=== PATIENT | male | born 1995 | race Caucasian/White ===

== ENCOUNTER → 2025-02-02 15:06 | Outpatient (BNVA) | payer OTHER, SELFPAY | PROVIDERS: Visit Provider Podiatrist Foot & Ankle Surgery | DX: M79.671 Pain in right foot (principal); M79.672 Pain in left foot; M25.371 Other instability, right ankle; M25.372 Other instability, left ankle; M25.571 Pain in right ankle and joints of right foot; M25.572 Pain in left ankle and joints of left foot; G89.29 Other chronic pain | CPT/HCPCS: 73610; 73630; 99203 ==

== ENCOUNTER 2025-03-06 10:12 | Emergency (ER) | payer OTHER, SELFPAY ==
[2025-03-06 10:16] VITALS: BP 142/80; PULSE 83; TEMP 36.9; O2SAT 98; BMI 28.5
--- NOTE | 2025-03-06 10:23 | CT_ITS ---
WS: [id number] CT FACIAL BONES TECHNIQUE: Noncontrast facial bones with coronal and sagittal reformatted images. CLINICAL INFORMATION: Trauma COMPARISON: None. DLP: 2017.[address] scans at [facility] use at least one of these dose optimization techniques: automated exposure control; mA and/or kV adjustment per patient size (includes targeted exams where dose is matched to clinical indication); or iterative reconstruction. FINDINGS: Comminuted nasal bone fractures involving the distal nasal tip extending into the nasal bones bilaterally. Slight depression of the LEFT nasal bone fracture. Soft tissue edema. Paranasal sinuses are well aerated. Mastoid air cells are well aerated. Pterygoid plates are intact. No evidence of mandibular fracture or dislocation. Zygoma are intact. No evidence of mandibular fracture or dislocation. CT/CT facial bones wo con* [id number] IMPRESSION: Comminuted nasal bone fractures involving the distal nasal tip extending into the nasal bones bilaterally. Slight depression of the LEFT nasal bone fracture .
--- NOTE | 2025-03-06 10:23 | CT_ITS ---
WS: [id number] CT CERVICAL TRAUMA TECHNIQUE: Noncontrast CT of the cervical spine with coronal and sagittal reformatted images. CLINICAL INFORMATION: Trauma COMPARISON: None. DLP: 2017.[address] scans at [facility] use at least one of these dose optimization techniques: automated exposure control; mA and/or kV adjustment per patient size (includes targeted exams where dose is matched to clinical indication); or iterative reconstruction. FINDINGS: Straightening of the normal cervical lordosis. Mild cervical curve. Normal craniocervical junction. Normal C1-C2 articulation. Dens is normal in appearance. Normal occipital condyles. No high-grade spinal canal narrowing. Normal C1 ring. No evidence of acute fracture or dislocation. Normal prevertebral soft tissues. Mastoids air cells are well aerated. CT/CT cervical spin wo con* [id number] IMPRESSION: No evidence of acute fracture or dislocation.
--- NOTE | 2025-03-06 10:23 | CT_ITS ---
WS: [id number] CT HEAD TECHNIQUE: Noncontrast CT of the head obtained from the skullbase to the vertex. CLINICAL INFORMATION: Trauma COMPARISON: None. DLP: 2017.[address] scans at [facility] use at least one of these dose optimization techniques: automated exposure control; mA and/or kV adjustment per patient size (includes targeted exams where dose is matched to clinical indication); or iterative reconstruction. FINDINGS: No evidence of intracranial hemorrhage or mass effect. Ventricular system and basal cisterns are patent. No extra-axial fluid collections. No evidence of mass or mass effect. Normal washburn-white differentiation. Paranasal sinuses and mastoid air cells are well aerated. .Normal visualized soft tissues. LEFT nasal bone fracture will be discussed on the face CT CT/CT head wo con* [id number] IMPRESSION: 1. No evidence of intracranial hemorrhage or mass effect. 2. No acute intracranial findings.
--- NOTE | 2025-03-06 10:23 | XR_ITS ---
WS: [id number] Left ankle, 3 views, 03/06/2025 Clinical Data: Trauma Comparison: Left ankle, 02/02/2025 Findings: No fractures or dislocations are seen. The ankle mortise is normal. The talus and calcaneus are unremarkable. No soft tissue swelling over the medial or lateral malleolus is seen. XR/XR ankle LT min 3V* [id number] Impression: Negative left ankle.
--- NOTE | 2025-03-06 11:24 | W.ED.TRAUMA ---
HPI - Trauma General: Chief Complaint: Trauma Stated Complaint: bucked off a horse, nose and L ankle pain Time Seen by Provider: 03/06/25 10:25 History of Present Illness: 30-year-old male presents emergency room with complaints of having been thrown from a horse. Last night he was riding a horse he was thrown off hit his head he is complaining of neck pain headache and left ankle pain this morning. No abdominal pain. He reports he did have a loss of consciousness thinks he was out for about 2 to 3 minutes. Previous history of traumatic brain injury associated with service. Associated symptoms: Denies abdominal pain, back pain, chest pain, chills or fever(s) Related Data Previous Rx's ?Medication ?Instructions ?Recorded Custom inserts [id number] #1 ea 02/07/25 diclofenac sodium 75 mg 75 mg PO Q12H PRN pain #20 tabs 03/06/25 tablet,delayed release Allergies Allergy/AdvReac Type Severity Reaction Status Date / Time No Known Allergies Allergy Verified 03/06/25 10:22 Review of Systems Const: Denies: fever(s) or chills Card: Denies: chest pain Resp: Denies: dyspnea GI: Denies: abdominal pain : Denies: dysuria, urinary frequency or urinary urgency Musc: Reports: joint pain; Denies: neck pain or back pain Skin/Breast: Denies: rash PFS ED PFSH: Medical History (Updated 03/06/25 @ 12:30 by Sancho Sorensen DO) History of traumatic brain injury Social History Smoking and tobacco/nicotine status: former use of tobacco/nicotine Physical Exam Const: COMMON NORMALS: no acute distress GENERAL APPEARANCE: cooperative and comfortable ORIENTATION/CONSCIOUSNESS: Yes awake, Yes oriented to person, Yes oriented to place and Yes oriented to time HENMT: COMMON NORMALS: normocephalic, atraumatic and hearing grossly normal bilaterally HEAD & SCALP: normocephalic and atraumatic Resp: COMMON NORMALS: normal respiratory effort, No retractions, No use of accessory muscles and clear to auscultation bilaterally AUSCULTATION: clear to auscultation bilaterally Cardio: COMMON NORMALS: regular rate, regular rhythm and No murmurs present (Cardio) RATE: regular rate RHYTHM: regular rhythm GI: COMMON NORMALS: Soft to palpation and No hepatosplenomegaly present AUSCULTATION: Yes normoactive bowel sounds PALPATION: Yes Soft to palpation, No Tenderness to palpation present (GI), No Guarding due to palpation present (GI) and Yes No hepatosplenomegaly present Extremity: COMMON NORMALS: normal to inspection, capillary refill normal, no clubbing, cyanosis or edema, no calf tenderness and no pedal edema Neuro: SENSORIUM/ORIENTATION: Yes oriented to person, Yes oriented to place and Yes oriented to time Skin: COMMON NORMALS: no rashes or lesions noted GENERAL SKIN EXAM: no rashes or lesions noted Course Vital Signs: Vital signs: Vital Signs Temperature 98.4 F 03/06/25 10:16 Pulse Rate 69 03/06/25 11:30 Blood Pressure 137/84 03/06/25 11:30 Pulse Oximetry 96 03/06/25 11:30 Oxygen Delivery Me thod Room Air 03/06/25 11:30 MDM - Trauma Medical Decision Making CT of the head and neck are unremarkable CT facial bones shows comminuted nasal bone fracture he does not have any occlusion of the nares at this point. He is unable to bear weight on the left ankle plain films unremarkable for fracture. Will set him up for outpatient follow-up with ENT regarding the nasal bone fracture. Placed in a posterior splint and given crutches elevate and ice is much as he is able diclofenac as needed and follow-up with podiatry. it operations manager will make arrangements for the follow-ups. Reviewed findings with the patient. Medical Records I reviewed the patient's medical records. Lab Data I reviewed the patient's lab results. 03/06/25 11:50 03/06/25 11:50 Radiology Impressions Ankle X-Ray 03/06/25 10:23 Impression: Negative left ankle. Cervical Spine CT 03/06/25 10:23 IMPRESSION: No evidence of acute fracture or dislocation. Face CT 03/06/25 10:23 IMPRESSION: Comminuted nasal bone fractures involving the distal nasal tip extending into the nasal bones bilaterally. Slight depression of the LEFT nasal bone fracture. Head CT 03/06/25 10:23 IMPRESSION: 1. No evidence of intracranial hemorrhage or mass effect. 2. No acute intracranial findings. Laboratory Results WBC 7.02 10^3/uL (3.29-11.43) 03/06/25 11:50 RBC 5.00 10^6/uL (3.85-5.65) 03/06/25 11:50 Hgb 14.50 g/dL (11.27-16.99) 03/06/25 11:50 Hct 41.4 % (37-53) 03/06/25 11:50 MCV 82.8 fl (82-101) 03/06/25 11:50 MCH 29.0 pg (27-33) 03/06/25 11:50 MCHC 35.0 g/dL (30-55) 03/06/25 11:50 RDW 12.0 % (12.1-15.1) L 03/06/25 11:50 Plt Count 239 10^3/cmm (157-399) 03/06/25 11:50 MPV 11.4 fL (7.4-10.4) H 03/06/25 11:50 Neut % (Auto) 59.8 % 03/06/25 11:50 Lymph % (Auto) 31.2 % 03/06/25 11:50 [place] % (Auto) 6.0 % 03/06/25 11:50 Eos % (Auto) 2.4 % 03/06/25 11:50 Baso % (Auto) 0.3 % 03/06/25 11:50 Neut # (Auto) 4.20 10^3/uL (1.8-7.7) 03/06/25 11:50 Lymph # (Auto) 2.2 10^3/uL (0.8-4.8) 03/06/25 11:50 [place] # (Auto) 0.4 10^3/uL (0.2-0.9) 03/06/25 11:50 Eos # (Auto) 0.2 10^3/uL (0.0-0.8) 03/06/25 11:50 Baso # (Auto) 0.0 10^3/uL (0.0-0.1) 03/06/25 11:50 Nucleated RBC % (auto) 0 % 03/06/25 11:50 Nucleated RBCs # 0.0 /100WBC 03/06/25 11:50 Sodium 136 mmol/L (136-145) 03/06/25 11:50 Potassium 3.8 mmol/L (3.5-5.1) 03/06/25 11:50 Chloride 100 mmol/L (98-107) 03/06/25 11:50 Carbon Dioxide 23 mmol/L (22-29) 03/06/25 11:50 Anion Gap 16.8 (5-19) 03/06/25 11:50 BUN 7 mg/dL (6-20) 03/06/25 11:50 Creatinine 0.7 mg/dL (0.7-1.2) 03/06/25 11:50 GFR Calculation 130.7 mL/min (90-130) H 03/06/25 11:50 Glucose 80 mg/dL (65-115) 03/06/25 11:50 Calculated Osmolality 279 mOsm/kg (285-295) L 03/06/25 11:50 Calcium 8.9 mg/dL (8.5-10.5) 03/06/25 11:50 Total Bilirubin 0.5 mg/dL (0.15-1.2) 03/06/25 11:50 AST 32 U/L (0-40) 03/06/25 11:50 ALT 37 U/L (0-41) 03/06/25 11:50 Alkaline Phosphatase 79 U/L (40-130) 03/06/25 11:50 Total Protein 7.0 g/dL (6.6-8.7) 03/06/25 11:50 Albumin 4.4 g/dL (3.5-5.2) 03/06/25 11:50 Globulin 2.6 g/dL (1.3-4.6) 03/06/25 11:50 Urine Color Yellow (Yellow) 03/06/25 12:15 Urine Appearance Clear (CLEAR) 03/06/25 12:15 Urine pH 6.5 (5-7) 03/06/25 12:15 Ur Specific Brogue 1.019 (1.005-1.030) 03/06/25 12:15 Urine Protein Negative (Negative) 03/06/25 12:15 Urine Glucose (UA) Negative (Normal) 03/06/25 12:15 Urine Ketones 2+ (Negative) H 03/06/25 12:15 Urine Blood Negative (Negative) 03/06/25 12:15 Urine Nitrate Negative (Negative) 03/06/25 12:15 Urine Bilirubin Negative (Negative) 03/06/25 12:15 Urine Urobilinogen 1.0 mg/dL (Negative) 03/06/25 12:15 Ur Leukocyte Esterase Negative (Negative) 03/06/25 12:15 Urine RBC 0-2 /hpf (0-2) 03/06/25 12:15 Urine WBC 0-5 /hpf (0-5) 03/06/25 12:15 Ur Squamous Epith Cells 0-5 /hpf (0-5) 03/06/25 12:15 Amorphous Sediment Not Reportable 03/06/25 12:15 Urine Bacteria None seen /hpf (NONE) 03/06/25 12:15 Hyaline Casts 0.81 /lpf 03/06/25 12:15 All radiology interpretation(s) finalized by discharge Discharge Plan Discharge Patient Disposition: Home Clinical Impression: Fall from horse, Left ankle instability, History of traumatic brain injury, Closed fracture nasal bone, Left ankle sprain Condition: Stable Prescriptions: New diclofenac sodium 75 mg tablet,delayed release (DR/EC) 75 mg PO Q12H PRN (Reason: pain) Qty: 20 0RF No Action (DME) Custom inserts [id number] See Rx Instructions .Route .MEDSUPPLY Qty: 1 0RF Rx Instructions: As directed [facility] Discharge Orders: Discharge ED (Routine); Ordered 03/06/25 Ordered By: Sancho Sorensen Discharge Diet: Usual diet Discharge Activity: Increase activity as tolerated Patient Instructions: Opioid Safety, Pain Management, Patient Portal & Nara Instructions Activity Restrictions/Additional Instructions: Thank you for choosing [facility] for your healthcare needs today. It is very important that you follow up as instructed or that you return to the Emergency Department should you have concerns or if your condition changes or worsens in any way. Emergency department visits are focused on emergent conditions, in some cases you may require further evaluation on an outpatient basis. You were seen in the emergency room today after falling from horse a CT of your head and neck showed nasal bone fracture but no other injuries. X-ray of your left ankle was normal however you are unable to walk on it. We recommend nonweightbearing on the left ankle we placed a splint on left lower leg and advised to use crutches. Will have you follow-up with podiatry for your ankle and with ENT for the nasal bone fracture. You can use diclofenac as needed for pain or discomfort. Nonweightbearing on your left ankle. Elevate and ice your ankle as you are able. (Please note that included in your discharge packet is information concerning opioid safety and pain management. This information is given to all patients were discharged from the ER regardless of their discharge diagnosis or the medicines they usually take or are prescribed.) Print Language: Wallisian Coding Level of Care Code ED Microbiology Lab Technician for Fidel Pimentel
[2025-03-06 11:30] VITALS: BP 137/84; PULSE 69; O2SAT 96
[2025-03-06 12:04] LABS: Hematocrit 41.4 % (37-53); Hemoglobin 14.50 g/dL (11.27-16.99); Mean Corpuscular HGB Conc 35.0 g/dL (30-55); Mean Corpuscular Hemoglobin 29.0 pg (27-33); Mean Corpuscular Volume 82.8 fl (82-101); Nucleated Red Blood Cells % 0 %; Platelet Count 239 10^3/cmm (157-399); Red Blood Count 5.00 10^6/uL (3.85-5.65); White Blood Count 7.02 10^3/uL (3.29-11.43)
[2025-03-06 12:23] LABS: Glucose Urine UA Negative (Normal); Nitrate Urine Negative (Negative); Specific Gravity, Urine 1.019 (1.005-1.030)
[2025-03-06 12:23] LABS: Alanine Aminotransferase 37 U/L (0-41); Albumin Level 4.4 g/dL (3.5-5.2); Alkaline Phosphatase 79 U/L (40-130); Anion Gap 16.8 (5-19); Aspartate Amino Transferase 32 U/L (0-40); Blood Urea Nitrogen 7 mg/dL (6-20); Calcium 8.9 mg/dL (8.5-10.5); Carbon Dioxide 23 mmol/L (22-29); Chloride 100 mmol/L (98-107); Creatinine Clr Calc Pharmacy 181.4177; Globulin 2.6 g/dL (1.3-4.6); Glucose 80 mg/dL (65-115); Osmolality Calculated 279 mOsm/kg (285-295); Potassium 3.8 mmol/L (3.5-5.1); Sodium 136 mmol/L (136-145); Total Protein 7.0 g/dL (6.6-8.7)
[2025-03-06 12:26] LABS: Add Urine Microscopic? YES
[2025-03-06 13:13] VITALS: BP 137/89; PULSE 69; O2SAT 97
== END 2025-03-06 13:14 | disposition home or self-care (01) ==
PROVIDERS: Emergency Provider Family Medicine
DX: M25.372 Other instability, left ankle (principal); S02.2XXA Fracture of nasal bones, initial encounter for closed fracture; S93.402A Sprain of unspecified ligament of left ankle, initial encounter; V80.010A Animal-rider injured by fall from or being thrown from horse in noncollision accident, initial encounter; Z87.891 Personal history of nicotine dependence; Z87.820 Personal history of traumatic brain injury
CPT/HCPCS: 29515; 36415; 70450; 70486; 72125; 73610; 80053; 81001; 85025; 99284

== ENCOUNTER 2025-03-07 14:33 | Outpatient (CLI) | payer OTHER, SELFPAY | END 2025-03-07 14:34 | disposition home or self-care (01) | LOC: SPT 14:34 | PROVIDERS: Visit Provider Podiatrist Foot & Ankle Surgery | DX: Z46.89 Encounter for fitting and adjustment of other specified devices (principal); S93.402D Sprain of unspecified ligament of left ankle, subsequent encounter; X58.XXXD Exposure to other specified factors, subsequent encounter | CPT/HCPCS: L4361 ==